=== PATIENT | female | born 1980 | race African-American/Black ===

== ENCOUNTER 2017-08-18 09:40 | Emergency (ER) | payer OTHER ==
[~2017-08-18] VITALS: Ht 160 cm; Wt 68.0 kg
[~2017-08-18 09:40] MED LIST: ALBU6.7H INH
[2017-08-18 09:57] VITALS: BP 172/102; PULSE 74; RESP 17; TEMP 98; O2SAT 99
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
[2017-08-18 11:33] LABS: AUTOMATED NEUTROPHIL # 2.4 TH/MM3 (1.8-7.7); BASOPHIL % 0.6 % (0.0-2.0); EOSINOPHIL # 0.3 TH/MM3 (0-0.4); EOSINOPHIL % 6.3 % (0.0-4.0); HEMATOCRIT 31.5 % (35.0-46.0); HEMO FLAGS DIFF FINAL; LYMPH % 31.1 % (9.0-44.0); LYMPHOCYTE # 1.4 TH/MM3 (1.0-4.8); MEAN CELL VOLUME 80.2 FL (80.0-100.0); MEAN CORPUSCULAR HEMOGLOBIN 25.5 PG (27.0-34.0); MEAN CORPUSCULAR HGB CONC 31.9 % (32.0-36.0); MONO % 8.1 % (0.0-8.0); NEUT % 53.9 % (16.0-70.0); PLATELET COUNT 302 TH/MM3 (150-450); RED BLOOD COUNT 3.93 MIL/MM3 (4.00-5.30); RED CELL DISTRIBUTION WIDTH 19.1 % (11.6-17.2); WHITE BLOOD COUNT 4.4 TH/MM3 (4.0-11.0)
[2017-08-18 12:01] LABS: ANION GAP 7 MEQ/L (5-15); AST (GOT) 13 U/L (15-37); BICARBONATE 26.2 MEQ/L (21.0-32.0); BLOOD UREA NITROGEN 4 MG/DL (7-18); CHLORIDE 107 MEQ/L (98-107); GLOMERULAR FILTRATION RATE 163 ML/MIN (>89); POTASSIUM 3.7 MEQ/L (3.5-5.1); SODIUM (NA) 140 MEQ/L (136-145)
[2017-08-18 12:02] LABS: ALT (GPT) 14 U/L (10-53)
[2017-08-18 12:05] LABS: ALKALINE PHOSPHATASE 103 U/L (45-117); TOTAL BILIRUBIN ADULT 0.2 MG/DL (0.2-1.0)
[2017-08-18 12:09] LABS: ALCOHOL LESS THAN 3 MG/DL (0-5)
[2017-08-18] MEDS ORDERED: ACETAMINOPHEN 500 MG CPLT PO ONE ×2 (13:00→21:15)
[2017-08-18 13:46] LABS: BACTERIA, URINE RARE /hpf; BLOOD, URINE LARGE (NEG); COMMENT (UR) CULT NOT INDICATED; CULTURE IF INDICATED CULT NOT INDICATED; GLUCOSE,URINE NEG (NEG); KETONE, URINE NEG (NEG); MUCUS URINE FEW /lpf (OCC); NITRITE,URINE NEG (NEG); PH, URINE 6.5 (5.0-8.5); SQUAMOUS EPITHELIAL CELL URINE 2 /hpf (0-5); URINE COLOR LIGHT-YELLOW (YELLW/STRAW)
[2017-08-18 15:30] VITALS: BP 145/78; PULSE 79; RESP 17; O2SAT 98
[2017-08-18] MEDS ORDERED: ALBU6.7H INH (20:09)
[2017-08-18] MEDS ORDERED: hydrOXYzine PAMOATE 25 MG CAP PO ONE (21:15)
[2017-08-18 22:17] VITALS: BP 144/89; PULSE 79; RESP 16; TEMP 98.2; O2SAT 100
[2017-08-19 02:00] VITALS: BP 142/83; PULSE 69; RESP 18; TEMP 98.1; O2SAT 100
== END 2017-08-19 05:12 ==
LOC: NEPE 09:40 → NEPJ 08-19 05:12
DX: R45.851 Suicidal ideations (principal); N94.6 Dysmenorrhea, unspecified; J45.909 Unspecified asthma, uncomplicated; F17.210 Nicotine dependence, cigarettes, uncomplicated; M54.9 Dorsalgia, unspecified; G89.29 Other chronic pain
CPT/HCPCS: 80053; 80307; 81001; 84703; 85025; 99285; Q0177

== ENCOUNTER 2017-10-27 22:31 | Emergency (ER) | payer OTHER ==
[~2017-10-27] VITALS: Ht 160 cm; Wt 70.0 kg
[2017-10-27 22:32] VITALS: BP 119/80; PULSE 95; RESP 16; TEMP 99.1; O2SAT 100
[2017-10-27 23:17] VITALS: BP 115/71; PULSE 86; RESP 18; O2SAT 100
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
[2017-10-27 23:46] LABS: HEMATOCRIT 26.2 % (35.0-46.0); HEMOGLOBIN 8.3 GM/DL (11.6-15.3); MEAN CELL VOLUME 73.7 FL (80.0-100.0); MEAN CORPUSCULAR HEMOGLOBIN 23.4 PG (27.0-34.0); MEAN CORPUSCULAR HGB CONC 31.7 % (32.0-36.0); MEAN PLATELET VOLUME 8.6 FL (7.0-11.0); PLATELET COUNT 312 TH/MM3 (150-450); RED BLOOD COUNT 3.55 MIL/MM3 (4.00-5.30); RED CELL DISTRIBUTION WIDTH 20.7 % (11.6-17.2); WHITE BLOOD COUNT 8.6 TH/MM3 (4.0-11.0)
[2017-10-28] MEDS ORDERED: SODIUM CHLORIDE 0.9% FLUSH 10 ML FLUSH IVF PRN
[2017-10-28] MEDS ORDERED: MORPHINE SULFATE 2 MG/ML INJ IV PUSH ONE
[2017-10-28 00:13] VITALS: O2SAT 100
[2017-10-28 00:14] LABS: ALKALINE PHOSPHATASE 109 U/L (45-117); TOTAL BILIRUBIN ADULT 0.3 MG/DL (0.2-1.0); TOTAL PROTEIN 8.3 GM/DL (6.4-8.2)
[2017-10-28 00:15] LABS: ALBUMIN 3.7 GM/DL (3.4-5.0); ALT (GPT) 20 U/L (10-53); AST (GOT) 32 U/L (15-37); BICARBONATE 21.2 MEQ/L (21.0-32.0); BLOOD UREA NITROGEN 13 MG/DL (7-18); CALCIUM 8.7 MG/DL (8.5-10.1); CHLORIDE 108 MEQ/L (98-107); GLOMERULAR FILTRATION RATE 135 ML/MIN (>89); GLUCOSE,RANDOM 76 MG/DL (74-106); SODIUM (NA) 136 MEQ/L (136-145)
[2017-10-28 00:18] LABS: LYMPHOCYTES 30 % (9-44); MONOCYTES 4 % (0-8); NEUTROPHIL # MANUAL DIFF 5.7 TH/MM3 (1.8-7.7); POLYS (SEG NEUTROPHILS) 66 % (16-70)
[2017-10-28 00:19] LABS: OVALOCYTES 1+ (NORMAL)
[2017-10-28 00:20] LABS: HELMET CELLS OCC (NORMAL)
[2017-10-28 00:21] LABS: ACANTHOCYTES OCC (NORMAL)
[2017-10-28 00:22] LABS: TOXIC VACUOLATION PRESENT (NONE SEEN)
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
[2017-10-28] MEDS ORDERED: IOHEXOL 350 MG/ML 10 ML VIAL (for RAD DIAG) IVCONTRAST ONE (00:57)
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
== END 2017-10-28 02:09 | disposition home or self-care (01) ==
LOC: NEPE 22:31
DX: S80.212A Abrasion, left knee, initial encounter (principal); S09.90XA Unspecified injury of head, initial encounter; V89.2XXA Person injured in unspecified motor-vehicle accident, traffic, initial encounter; J45.909 Unspecified asthma, uncomplicated; I10 Essential (primary) hypertension; G89.29 Other chronic pain; M54.9 Dorsalgia, unspecified; F12.90 Cannabis use, unspecified, uncomplicated
CPT/HCPCS: 70450; 71260; 72125; 73030; 73564; 74177; 80053; 83690; 85007; 85027; 96374; 99285; J2270; L0150; Q9967